=== PATIENT | female | born 1955 | race African-American/Black ===

== ENCOUNTER 2018-03-02 20:48 | Emergency (ER) | payer SELFPAY ==
[~2018-03-02] VITALS: Ht 160 cm; Wt 70.3 kg
[2018-03-03] MEDS ORDERED: IV NORMAL SALINE 1000ML BAG 1,000 ML IV ONE (00:30)
[2018-03-03] MEDS ORDERED: LABETALOL 20 MG/4 ML DISP.SYRIN. IVP ONE (00:30)
[2018-03-03] MEDS ORDERED: DEXAMETHASONE SOD PHOS 20 MG/5 ML VIAL. IV ONE (00:30)
--- NOTE | 2018-03-03 00:34 | PHYS DOC ---
Past Medical History Past Medical History: Diabetes-Type II, High Cholesterol, Hypertension Additional Past Medical Histor: lumbar spine sponylosis Past Surgical History: , Tubal ligation Additional Past Surgical Histo: left wrist ganglion cyst, breast biopsies 3 Smokin Pack Per Day Alcohol Use: None Drug Use: None Adult General Chief Complaint Chief Complaint: DIZZY/LIGHT HEADED HPI HPI Patient is a 62 year old presenting for dizziness. Patient describes her dizziness as room spinning with associated nausea and headache. The patient notes this dizziness has been going on intermittently over the last 10 days and usually lasts about 10 minutes before stopping spontaneously. Patient denies any alleviating or aggravating factors. Patient notes she has not taken any medication for this dizziness. Patient notes she has had nasal congestion and watery discharge from her eyes intermittently for about 8 months. Patient notes these symptoms have an worse recently. Patient denies any tinnitus, hearing loss , vision changes, vomiting, abdominal pain, diarrhea, chest pain, syncope, or recent trauma. The patient also notes that she has had been having trouble controlling her blood pressure recently and notes that she had a systolic reading in the 240s after which she took her clonidine and came to the emergency department. Review of Systems Review of Systems Constitutional: Denies fever or chills [] Eyes: Denies change in visual acuity, redness, or eye pain [] HENT: Notes nasal congestion, denies sore throat [] Respiratory: Denies cough or shortness of breath [] Cardiovascular: Denies chest pain or palpitations[] GI: Denies abdominal pain, nausea, vomiting, bloody stools or diarrhea. Notes constipation[] : Denies dysuria or hematuria [] Musculoskeletal: Denies back pain or joint pain [] Integument: Denies rash or skin lesions [] Neurologic: Notes headache, denies focal weakness or sensory changes [] Complete systems were reviewed and found to be within normal limits, except as documented in this note. Current Medications Current Medications Current Medications Medications (Trade) Dose Ordered Sig/Percy Start Time Stop Time Status Last Admin Dose Admin Dexamethasone Sodium Phosphate (Decadron) 10 mg 1X ONCE 03/03/18 00:30 03/03/18 00:31 DC 03/03/18 01:52 10 MG Insulin Human Regular (HumuLIN R VIAL) 12 unit 1X ONCE 03/03/18 02:45 03/03/18 02:46 DC 03/03/18 03:05 12 UNIT Labetalol HCl (Normodyne Iv Push) 10 mg 1X ONCE 03/03/18 00:30 03/03/18 00:31 DC 03/03/18 01:54 10 MG Neomycin/ Polymyxin/ Bacitracin (Triple Antibiotic Ointment) 1 pkt 1X ONCE 03/03/18 03:15 03/03/18 03:16 DC Sodium Chloride 1,000 ml @ 1,000 mls/hr 1X ONCE 03/03/18 00:30 03/03/18 01:29 DC 03/03/18 01:53 1,000 MLS/HR Allergies Allergies Allergies Coded Allergies Type Severity Reaction Last Updated Verified No Known Drug Allergies 03/03/18 No Physical Exam Physical Exam Constitutional: Well developed, well nourished, no acute distress, non-toxic appearance. [] HENT: Normocephalic, atraumatic, bilateral external ears normal, oropharynx moist, no oral exudates, nose normal. [] Eyes: PERRL, EOMI, conjunctiva normal, no discharge. [] Neck: Normal range of motion, no tenderness, supple, no meningismus. [] Cardiovascular:Heart rate regular rhythm, no murmur [] Lungs & Thorax: Bilateral breath sounds clear to auscultation [] Abdomen: Bowel sounds normal, soft, no tenderness. [] Skin: Warm, dry, no erythema, no rash. [] Back: No tenderness, no CVA tenderness. [] Extremities: No tenderness, no cyanosis, no clubbing, ROM intact, no edema. [] Neurologic: Alert and oriented X 3, normal motor function, normal sensory function, no focal deficits noted. [] Psychologic: Affect normal, judgement normal, mood normal. [] Current Patient Data Vital Signs Vital Signs Date Time Temp Pulse Resp B/P (MAP) Pulse Ox O2 Delivery O2 Flow Rate FiO2 03/03/18 03:06 92 20 97 03/03/18 01:54 212/100 03/03/18 00:46 98.4 Room Air 98.4 Lab Values Laboratory Tests Test 03/03/18 01:40 White Blood Count 6.6 x10^3/uL (4.0-11.0) Red Blood Count 4.92 x10^6/uL (3.50-5.40) Hemoglobin 13.1 g/dL (12.0-15.5) Hematocrit 39.5 % (36.0-47.0) Mean Corpuscular Volume 80 fL (79-100) Mean Corpuscular Hemoglobin 27 pg (25-35) Mean Corpuscular Hemoglobin Concent 33 g/dL (31-37) Red Cell Distribution Width 17.0 % (11.5-14.5) H Platelet Count 290 x10^3/uL (140-400) Neutrophils (%) (Auto) 51 % (31-73) Lymphocytes (%) (Auto) 36 % (24-48) Monocytes (%) (Auto) 10 % (0-9) H Eosinophils (%) (Auto) 2 % (0-3) Basophils (%) (Auto) 1 % (0-3) Neutrophils # (Auto) 3.4 x10^3uL (1.8-7.7) Lymphocytes # (Auto) 2.4 x10^3/uL (1.0-4.8) Monocytes # (Auto) 0.7 x10^3/uL (0.0-1.1) Eosinophils # (Auto) 0.1 x10^3/uL (0.0-0.7) Basophils # (Auto) 0.1 x10^3/uL (0.0-0.2) Urine Collection Type Unknown Urine Color Yellow Urine Clarity Clear Urine pH 8.0 Urine Specific Burnett 1.015 Urine Protein Negative mg/dL (NEG-TRACE) Urine Glucose (UA) >=1000 mg/dL (NEG) Urine Ketones (Stick) Negative mg/dL (NEG) Urine Blood Negative (NEG) Urine Nitrite Negative (NEG) Urine Bilirubin Negative (NEG) Urine Urobilinogen Dipstick 1.0 mg/dL (0.2 mg/dL) Urine Leukocyte Esterase Negative (NEG) Urine RBC Occ /HPF (0-2) Urine WBC Occ /HPF (0-4) Urine Squamous Epithelial Cells Few /LPF Urine Bacteria 0 /HPF (0-FEW) Urine Yeast Present /HPF Sodium Level 136 mmol/L (136-145) Potassium Level 3.9 mmol/L (3.5-5.1) Chloride Level 102 mmol/L (98-107) Carbon Dioxide Level 25 mmol/L (21-32) Anion Gap 9 (6-14) Blood Urea Nitrogen 5 mg/dL (7-20) L Creatinine 0.6 mg/dL (0.6-1.0) Estimated GFR (Cockcroft-Gault) 122.6 BUN/Creatinine Ratio 8 (6-20) Glucose Level 368 mg/dL (70-99) H Calcium Level 8.7 mg/dL (8.5-10.1) Magnesium Level 1.9 mg/dL (1.8-2.4) Total Bilirubin 0.3 mg/dL (0.2-1.0) Aspartate Amino Transferase (AST) 27 U/L (15-37) Alanine Aminotransferase (ALT) 16 U/L (14-59) Alkaline Phosphatase 72 U/L (46-116) Creatine Kinase 53 U/L (26-192) Troponin I Quantitative < 0.017 ng/mL (0.000-0.055) Total Protein 9.0 g/dL (6.4-8.2) H Albumin 3.2 g/dL (3.4-5.0) L Albumin/Globulin Ratio 0.6 (1.0-1.7) L Laboratory Tests 03/03/18 01:40 Laboratory Tests 03/03/18 01:40 EKG EKG @0055 NSR at 94bpm, nonspecific t wave inversion I and aVL, NO ST elevation Radiology/Procedures Radiology/Procedures Examination: CT head and maxillofacial bones without contrast HISTORY: History of dizziness, hypertension, sinus pressure Exposure: One or more of the following individualized dose reduction techniques were utilized for this examination: 1. Automated exposure control 2. Adjustment of the mA and/or kV according to patient size 3. Use of iterative reconstruction technique CT HEAD INDICATION: dizzy, HTN, sinus pressure, no priors COMPARISON: None Available. TECHNIQUE: 5 mm contiguous axial images were obtained from the skull base to the vertex in both bone and soft tissue algorithm. FINDINGS: No abnormal attenuation within the brain parenchyma. No evidence of acute intracranial hemorrhage. No extra-axial fluid collections. No mass effect or midline shift. Ventricular size is appropriate. Basal cisterns are patent. No fractures identified.Martínez-white differentiation is preserved.Globes and orbits are within normal limits. IMPRESSION: No acute intracranial findings. EXAM: CT FACIAL BONES WITHOUT CONTRAST History: dizzy, HTN, sinus pressure, no priors COMPARISON: None TECHNIQUE: Noncontrast images of the facial bones are performed. Coronal and sagittal reformatted images are also presented for interpretation. FINDINGS: No fracture, dislocation or other acute bony abnormality is identified. There is no soft tissue abnormality or radiopaque foreign body. Small mucous retention cyst or polyp identified in the left maxillary sinus. The globes and orbits are intact in CT appearance. There is no retrobulbar hematoma. IMPRESSION: No acute abnormality of the orbits or face Electronically signed by: Francesco Castillo MD (03/03/2018 12:34 AM) [facility] DICTATED and SIGNED BY: FRANCESCO CASTILLO MD DATE: 03/03/18 0031 Course & Med Decision Making Course & Med Decision Making 62-year-old female presenting with 10 days of intermittent room spinning dizziness with associated nausea and headache. Patient denies any aggravating or alleviating factors and says that the dizziness usually last 10 minutes. Patient also has had recent trouble controlling her blood pressure with a systolic in the 240s before coming to the emergency department. The patient took her clonidine before she came in to the ED. CT head and sinus done and do not show any acute findings. Labs drawn and evaluated and only significant for hyperglycemia. Suspect dizziness possibly secondary to hypertension or upper respiratory tract infection. Prescribed prescription for clonidine 0.2 mg. Patient stable for discharge with outpatient follow-up with PCP. Discussed findings and plan with patient and family, who acknowledge understanding and agreement. [] Dragon Disclaimer Dragon Disclaimer This electronic medical record was generated, in whole or in part, using a voice recognition dictation system. Departure Departure Impression: Primary Impression: Hypertension Additional Impressions: Axillary abscess Dizziness Disposition: 01 HOME, SELF-CARE Condition: IMPROVED Referrals: BENNY ALEJANDRE MD (PCP) Patient Instructions: Abscess, Qiei-lg-Erkn, Dizziness, Alpv-ao-Ihhs, Hypertension Scripts Clonidine Hcl (CLONIDINE HCL) 0.2 Mg Tablet 1 TAB PO BID, #20 TAB 0 Refills Prov: CLARICE JUARES DO 03/03/18 Cephalexin (KEFLEX) 500 Mg Capsule 500 MG PO QID for 10 Days, #40 CAP Prov: CLARICE JUARES DO 03/03/18 Problem Qualifiers Primary Impression: Hypertension Hypertension type: essential hypertension Qualified Codes: I10 - Essential ( primary) hypertension CLARICE JUARES DO Mar 03, 2018 00:34
--- NOTE | 2018-03-03 00:38 | RAD ---
Examination: CT head and maxillofacial bones without contrast HISTORY: History of dizziness, hypertension, sinus pressure Exposure: One or more of the following individualized dose reduction techniques were utilized for this examination: 1. Automated exposure control 2. Adjustment of the mA and/or kV according to patient size 3. Use of iterative reconstruction technique CT HEAD INDICATION: dizzy, HTN, sinus pressure, no priors COMPARISON: None Available. TECHNIQUE: 5 mm contiguous axial images were obtained from the skull base to the vertex in both bone and soft tissue algorithm. FINDINGS: No abnormal attenuation within the brain parenchyma. No evidence of acute intracranial hemorrhage. No extra-axial fluid collections. No mass effect or midline shift. Ventricular size is appropriate. Basal cisterns are patent. No fractures identified.Martínez-white differentiation is preserved.Globes and orbits are within normal limits. IMPRESSION: No acute intracranial findings. EXAM: CT FACIAL BONES WITHOUT CONTRAST History: dizzy, HTN, sinus pressure, no priors COMPARISON: None TECHNIQUE: Noncontrast images of the facial bones are performed. Coronal and sagittal reformatted images are also presented for interpretation. FINDINGS: No fracture, dislocation or other acute bony abnormality is identified. There is no soft tissue abnormality or radiopaque foreign body. Small mucous retention cyst or polyp identified in the left maxillary sinus. The globes and orbits are intact in CT appearance. There is no retrobulbar hematoma. IMPRESSION: No acute abnormality of the orbits or face Electronically signed by: Francesco Castillo MD (03/03/2018 12:34 AM) [facility]
[2018-03-03 01:56] LABS: BILIRUBIN,URINE NEGATIVE (NEG); CLARITY,URINE CLEAR; COLOR,URINE YELLOW; NITRITE,URINE NEGATIVE (NEG); PROTEIN,URINE NEGATIVE (NEG-TRACE)
[2018-03-03 01:57] LABS: BASO # 0.1 x10^3/uL (0.0-0.2); BASO % 1 % (0-3); EOS # 0.1 x10^3/uL (0.0-0.7); EOS % 2 % (0-3); HEMATOCRIT 39.5 % (36.0-47.0); HEMOGLOBIN 13.1 g/dL (12.0-15.5); LYMPH # 2.4 x10^3/uL (1.0-4.8); LYMPH % 36 % (24-48); MEAN CORPUSCULAR HEMOGLOBIN 27 pg (25-35); MEAN CORPUSCULAR HGB CONC 33 g/dL (31-37); MEAN CORPUSCULAR VOLUME 80 fL (79-100); MONO # 0.7 x10^3/uL (0.0-1.1); MONO % 10 % (0-9); NEUT # 3.4 x10^3uL (1.8-7.7); NEUT % 51 % (31-73); PLATELET COUNT 290 x10^3/uL (140-400); RED BLOOD COUNT 4.92 x10^6/uL (3.50-5.40); WHITE BLOOD COUNT 6.6 x10^3/uL (4.0-11.0)
[2018-03-03 02:10] LABS: RBC,URINE OCC /HPF (0-2)
[2018-03-03 02:11] LABS: BACTERIA,URINE 0 /HPF (0-FEW); SQUAMOUS EPITHELIAL CELL,UR FEW /LPF; WBC,URINE OCC /HPF (0-4); YEAST,URINE PRESENT /HPF
[2018-03-03 02:14] LABS: CALCIUM 8.7 mg/dL (8.5-10.1); CREATININE 0.6 mg/dL (0.6-1.0); GFR 122.6; POTASSIUM 3.9 mmol/L (3.5-5.1)
[2018-03-03 02:19] LABS: ALBUMIN 3.2 g/dL (3.4-5.0); ALBUMIN/GLOBULIN RATIO 0.6 (1.0-1.7); MAGNESIUM 1.9 mg/dL (1.8-2.4); TOTAL BILIRUBIN 0.3 mg/dL (0.2-1.0)
[2018-03-03] MEDS ORDERED: INSULIN REGULAR 100 UNIT/ML 3ML VIAL. SQ ONE (02:45)
[2018-03-03] MEDS ORDERED: CEPH-264 PO (03:05)
[2018-03-03] MEDS ORDERED: CLON0.2T PO (03:05)
[2018-03-03 03:06] VITALS: BP 221/114
[2018-03-03] MEDS ORDERED: NEOMY/BACITR/POLYMYXIN OINT PACKET. TP ONE (03:15)
--- NOTE | 2018-03-03 04:32 | EKG ---
[facility] [address] [place] [address] Test Date: 2018-03-03 Test Time: 00:55:43 Pat Name: TRISTA CRUMP Department: Room: Gender: F [employer]: : 1955 Requested By: CLARICE JUARES Order Number: [id number] Reading MD: Measurements Intervals [place] Rate: 94 P: 46 [place]: 126 QRS: -28 QRSD: 78 T: 115 QT: 354 QTc: 448 Interpretive Statements SINUS RHYTHM LEFT ATRIAL ABNORMALITY LEFTWARD AXIS CONSIDER LEFT VENTRICULAR HYPERTROPHY T ABNORMALITY IN HIGH LATERAL LEADS ABNORMAL ECG RI6.01 No previous ECG available for comparison
== END 2018-03-03 03:37 | disposition home or self-care (01) ==
LOC: ER 20:48
DX: I10 Essential (primary) hypertension (principal); R42 Dizziness and giddiness; R11.0 Nausea; R09.81 Nasal congestion; L02.419 Cutaneous abscess of limb, unspecified; E11.9 Type 2 diabetes mellitus without complications; E78.00 Pure hypercholesterolemia, unspecified; F17.200 Nicotine dependence, unspecified, uncomplicated; Z98.890 Other specified postprocedural states; Z98.51 Tubal ligation status
CPT/HCPCS: 36415; 70450; 70486; 80053; 81001; 82550; 83735; 84484; 85025; 93005; 96361; 96372; 96374; 96375; 99285; J1100; J1815; J3490; J7030

== ENCOUNTER → 2019-03-30 | Outpatient (CLI) | payer MEDICAID ==
[~2019-03-30] MED LIST: CEPH-264 PO; CLON0.2T PO
--- NOTE | 2019-03-30 15:01 | RAD ---
MR#: [id number] Date of Study: 03/30/2019 Ordering Physician: ISMAEL OH, Referring Physician: ISMAEL OH Tech: Katja Tavares RVT, JOSE APPROVED REPORT Patient Location: OUT-PATIENT Indications Claudication: PAD Risk Factors Hypertension Diabetes Smoking Medications Aspirin VELOCITY AND DOPPLER WAVEFORM ANALYSIS RIGHT cm/secWaveformSeverity LEFT cm/secWaveform Severity pCFA 140.9MonophasicpCFA 148.3Monophasic Prof Fem Art. 268.4MonophasicProf Fem Art. 216.9Monophasic Fem Art Prox. 22.1MonophasicFem Art Prox. 36.6Monophasic Fem Art Mid. 23.5MonophasicFem Art Mid. 52.8Monophasic Fem Art Dist. 21.7MonophasicFem Art Dist. 50.9Monophasic Pop Art(Fossa) 26.9MonophasicPop Art(AK) 41.6Monophasic TURN DOWN WORKER Prox. 21.7MonophasicPTA Prox. 50.0Monophasic TURN DOWN WORKER Dist. 17.9MonophasicPTA Dist. 24.1Monophasic Per Art Dist.17.1MonophasicPer Art Dist.19.0Monophasic L[place] Dist. 24.9MonophasicATA Dist. 22.3Monophasic DPA 19MonophasicDPA 29Monophasic Findings Grayscale images of the bilateral lower extremity arterial vessels revealed diffuse atherosclerotic p laque. On the right side there is likely greater than 50% stenosis involving the bifurcation of the common f emoral artery. Severely diminished velocities are noted in the superficial femoral artery and the bel ow-knee vessels suggestive of more proximal disease at the level of the bifurcation or severe diffuse disease involving the SFA and popliteal segment. There is three-vessel runoff below the knee. Similarly on the left side there is again a greater than 50% stenosis involving the bifurcation of th e common femoral artery. Velocities are moderately diminished in the superficial femoral artery again suggestive of diffuse greater than 50% stenosis versus more proximal disease. There is again three-v essel runoff in the left lower extremity. Critical Notification Critical Value: No <Conclusion> 1. Probable high-grade bilateral common femoral arterial disease at the level of the bifurcation prob ably involving the proximal and mid superficial femoral arteries. Signed by : Nazario Corcoran, Electronically Approved : 03/30/2019 15:00:52
== END | disposition home or self-care (01) ==
LOC: US 13:55
PROVIDERS: ATTEND Internal Medicine Cardiovascular Disease
DX: I70.203 Unspecified atherosclerosis of native arteries of extremities, bilateral legs (principal); I10 Essential (primary) hypertension; E11.9 Type 2 diabetes mellitus without complications; F17.200 Nicotine dependence, unspecified, uncomplicated
CPT/HCPCS: 93925

== ENCOUNTER 2019-04-14 08:32 | Outpatient (CLI) | payer MEDICAID ==
[~2019-04-14] VITALS: Ht 162.6 cm; Wt 72.6 kg
[2019-04-14] VITALS (14 sets, daily range): BP systolic 166–230; BP diastolic 47–100
[~2019-04-14 08:32] MED LIST changes: +IODIXANOL 320 MG/ML 100 ML VIAL. ONE
[2019-04-14] MEDS ORDERED: METO50TA6 PO (08:55)
[2019-04-14] MEDS ORDERED: HYDR12.59 PO (08:55)
[2019-04-14] MEDS ORDERED: METF10007 PO (08:55)
[2019-04-14] MEDS ORDERED: ASPI325T8 PO (08:55)
[2019-04-14] MEDS ORDERED: BENA40TA15 PO (08:55)
[2019-04-14] MEDS ORDERED: CLON0.1T PO (08:55)
[2019-04-14] MEDS ORDERED: ATOR10TA60 PO (08:55)
[2019-04-14] MEDS ORDERED: HYDR100T24 PO (08:55)
[2019-04-14] MEDS ORDERED: FERR325T14 PO (08:55)
[2019-04-14] MEDS ORDERED: GLIM4TAB4 PO (08:55)
[2019-04-14] MEDS ORDERED: OMEP40CA45 PO (08:55)
[2019-04-14] MEDS ORDERED: FURO-69 PO (08:55)
[2019-04-14 09:13] LABS: HEMATOCRIT 29.1 % (36.0-47.0); HEMOGLOBIN 8.7 g/dL (12.0-15.5); RED BLOOD COUNT 4.71 x10^6/uL (3.50-5.40); RED CELL DISTRIBUTION WIDTH 22.6 % (11.5-14.5)
[2019-04-14 09:27] LABS: PROTHROMBIN TIME PATIENT 12.9 SEC (11.7-14.0)
[2019-04-14 09:29] LABS: CALCIUM 9.4 mg/dL (8.5-10.1); CREATININE 0.7 mg/dL (0.6-1.0); GFR 102.3; POTASSIUM 4.2 mmol/L (3.5-5.1)
[2019-04-14] MEDS ORDERED: hydrALAZINE 20 MG/ML VIAL. IVP PRN (09:45)
[2019-04-14] MEDS ORDERED: hydrALAZINE 20 MG/ML VIAL. ONE ×2 (09:49→11:36)
--- NOTE | 2019-04-14 10:40 | PDOC ---
MODERATE SEDATION ASSESSMENT RISKS/ALTERNATIVES Risks/Alternatives Risks and alternatives of this type of sedation and procedure discussed with: RISK/ALTERNATIVES: Patient H & P ON CHART H & P H & P on chart and reviewed for co-morbid conditions and appropriate labs. H&P ON CHART: Yes STATUS PREG STATUS ASSESSED: N/A MEDS/ALLERGIES REVIEWED Meds/Allergies Reviewed Medications and Allergies including time and route of recently administered narcotics and sedatives. MEDS/ALLERGIES REVIEWED: Yes ASA RATING ASA RATING: III AIRWAY ASSESSMENT Airway Assessment Airway patency, oral function limitations, presence of caps, crowns, dentures, partials, and ability to extend neck assessed. AIRWAY ASSESSMENT: Yes MALLAMPATI SCORE MALLAMPATI SCORE: II PRE-SEDATION ASSESSMENT PRE-SEDATION ASSESSMENT: Yes ISMAEL OH MD Apr 14, 2019 10:40
[2019-04-14] MEDS ORDERED: LIDOCAINE 1% Multi-Dose 20 ML VIAL. ONE (10:48)
[2019-04-14] MEDS ORDERED: MIDAZOLAM HCL/PF 2 MG/2 ML VIAL. ONE (10:54)
[2019-04-14] MEDS ORDERED: fentaNYL PF VIAL 100 MCG/2 ML VIAL ONE (10:55)
[2019-04-14] MEDS ORDERED: diphenhydrAMINE 50 MG/ML VIAL ONE (11:26)
[2019-04-14] MEDS ORDERED: MIDAZOLAM HCL/PF 2 MG/2 ML VIAL. IV ONE (12:00)
[2019-04-14] MEDS ORDERED: IODIXANOL 320 MG/ML 100 ML VIAL. IART ONE (12:00)
[2019-04-14] MEDS ORDERED: LIDOCAINE 1% Multi-Dose 20 ML VIAL. INJ ONE (12:00)
[2019-04-14] MEDS ORDERED: hydrALAZINE 20 MG/ML VIAL. IVP ONE (12:00)
[2019-04-14] MEDS ORDERED: fentaNYL PF VIAL 100 MCG/2 ML VIAL IV ONE (12:00)
[2019-04-14] MEDS ORDERED: diphenhydrAMINE 50 MG/ML VIAL IVP ONE (12:00)
[2019-04-14] MEDS ORDERED: IV 1/2 NORMAL SALINE 1,000 ML IV SCH (12:18)
[2019-04-14] MEDS ORDERED: NITROGLYCERIN SUBLINGUAL 0.4 MG BOTTLE OF 25. SL PRN (12:30)
--- NOTE | 2019-04-14 12:59 | CARD ---
MR#: [id number] Date of Study: 04/14/2019 Ordering Physician: ISMAEL SHIN, Referring Physician: Douglas WEIR: Laura Capps APPROVED REPORT Patient StatusOUT-PATIENT Test Engineer Nuclear Equipment: Laura Capps Procedure(s) performed: Aortogram with bilateral lower extremity runoff fl time: 5.2 mins dose: 94.5 gy/cm2 contrast: 135 ml visipaque moderate sedation: 66 minutes INDICATION FOR PROCEDURE The indication(s) include : Peripheral artery disease with claudication. PROCEDURE NARRATIVE After explaining the risks, benefits and alternative options, informed consent was obtained from royce ent. Patient was brought to the cardia Charge Account Authorizer and her right groin was prepped and draped in the usu al fashion. 20 mL of 2% lidocaine was infiltrated into the skin and subcutaneous tissues for local an esthesia. Arterial access was obtained in the right common femoral artery and 5 [place] sheath inserte d. 5 [place] pigtail catheter was used to perform aortogram with bilateral lower extremity runoff. The aortic shira was crossed over using 5 [place] crossover catheter was then exchanged to a 4 [place] an gled glide catheter and with the tip positioned in the left superficial femoral artery, selective lef t lower extremity angiography was performed. Contrast injections were performed through the sheath in the right groin for right lower extremity angiography. Patient tolerated the procedure well. Hemosta sis was achieved using manual compression. There were no immediate complications. The following findi ngs were noted. FINDINGS 1. No significant stenosis involving the distal descending aorta 2. No significant stenosis involving bilateral renal arteries 3. No significant stenosis involving bilateral common iliac arteries 4. The right external iliac artery showed 90% long stenosis with the sheath causing occlusion. The l eft external iliac artery showed 50-60% stenosis in the proximal segment. 5. The right common femoral artery showed a bifurcation lesion involving the distal HAMMER RUNNER, ostial prof unda and SFA reaching 70-80% stenosis severity. The left common femoral artery did not show any signi ficant stenosis. 6. The right superficial femoral artery showed long 100% chronic total occlusion in proximal to mids egment with distal reconstitution from collaterals. The left superficial femoral artery also showed 1 00% chronic total occlusion in proximal to midsegment with distal reconstitution from collaterals. 7. The popliteal arteries did not show any significant stenosis bilaterally. 8. There is three vessel runoff below the knee left lower extremity. The below the knee vessels fill ed faintly with contrast right lower extremity but there appeared to be three-vessel runoff. Conclusion Severe bilateral lower extremity peripheral artery disease including chronic total occlusions involvi ng bilateral superficial femoral arteries and significant stenosis involving the right external iliac and common femoral arteries. Recommendations Vascular surgery consultation for possible surgical revascularization. If patient is deemed a poor ca ndidate, we will consider staged percutaneous revascularization bilateral lower extremities. Vascular risk factor modification including regular exercise regimen. Signed by : Ismael Shin, Electronically Approved : 04/14/2019 12:59:24
[2019-04-14] MEDS ORDERED: LABETALOL HCL 200 MG TABLET PO SCH (13:00)
[2019-04-14] MEDS ORDERED: LABE200T4 PO (14:59)
--- NOTE | 2019-04-14 15:43 | NUR ---
Discharge Note: TRISTA CRUMP Discharge instructions and discharge home medications reviewed with Patient and a copy given. All questions have been answered and understanding verbalized. The following instructions and handouts were given: groin site care and adult moderate sedation Discontinued lines and drains: Peripheral IV intact. Patient discharged to Home or Self Care withSpousevia Wheelchair
== END 2019-04-14 16:04 | disposition home or self-care (01) ==
LOC: CCL 08:32
PROVIDERS: ATTEND Internal Medicine Cardiovascular Disease
DX: I70.92 Chronic total occlusion of artery of the extremities (principal); I77.1 Stricture of artery; R60.0 Localized edema; E78.5 Hyperlipidemia, unspecified; E11.9 Type 2 diabetes mellitus without complications; I10 Essential (primary) hypertension; R06.09 Other forms of dyspnea; Z72.0 Tobacco use
CPT/HCPCS: 36246; 36415; 75625; 75716; 80048; 85027; 85610; 85730; C1769; C1892; J0360; J1200; J1644; J2250; J3010; Q9967; 99152; 99153

== ENCOUNTER → 2019-05-30 | Outpatient (CLI) | payer MEDICAID ==
[2019-04-14 15:24] VITALS: BP 169/74
[~2019-05-30] MED LIST changes: +ASPI325T8 PO; +ATOR10TA60 PO; +BENA40TA15 PO; +CLON0.1T PO; +FERR325T14 PO; +FURO-69 PO; +GLIM4TAB4 PO; +HYDR100T24 PO; +HYDR12.59 PO; -IODIXANOL 320 MG/ML 100 ML VIAL. ONE; +LABE200T4 PO; +METF10007 PO; +METO50TA6 PO; +OMEP40CA45 PO; +REGADENOSON 0.4 MG/5 ML DISP.SYRIN. IV ONE
--- NOTE | 2019-05-30 09:12 | CARD ---
MR#: [id number] Date of Study: 05/30/2019 Ordering Physician: ISMAEL HO, Referring Physician: ISMAEL OH Tech: Deb Edwards RDCS APPROVED REPORT EXAM: Two-dimensional and M-mode echocardiogram with Doppler and color Doppler. Other Information Quality : Good INDICATION Exertional Dyspnea 2D DIMENSIONS RVDd1.9 (2.9-3.5cm)Left Atrium(2D)3.3 (1.6-4.0cm) IVSd1.6 (0.7-1.1cm)Aortic Root(2D)2.7 (2.0-3.7cm) LVDd4.2 (3.9-5.9cm)LVOT Diameter2.0 (1.8-2.4cm) PWd0.9 (0.7-1.1cm)LVDs2.2 (2.5-4.0cm) FS (%) 30.0 %SV61.3 ml LVEF(%)60.0 (>50%) Aortic Valve AoV Peak Benji.163.4cm/sAoV VTI32.6cm AO Peak GR.10.7mmHgLVOT Peak Benji.121.1cm/s AO Mean GR.6mmHgAVA (VMAX)2.36cm2 NATIV[place]AD (VTI)2.70cm2 Mitral Valve MV E Eljoqfev244.9cm/sMV DECEL CDXR994cg MV A Pczfnlzw668.8cm/sE/A Ratio0.8 Tricuspid Valve TR P. Rwyvaide578mv/sRAP GNTEFPTE9riHz TR Peak Gr.84dzXkQTDQ41llEi Pulmonary Vein S1 Emiepfkb35.0cm/sD2 Jezmybmk03.7cm/s LEFT VENTRICLE The left ventricle is normal size. There is moderate hypertrophy. The left ventricular systolic funct ion is normal and the ejection fraction is within normal range.The Ejection Fraction is 55-60%. There is normal LV segmental wall motion. Transmitral Doppler flow pattern is Grade I-abnormal relaxation pattern. RIGHT VENTRICLE The right ventricle is normal size. The right ventricular systolic function is normal. ATRIA The left atrium size is normal. The right atrium size is normal. The interatrial septum is intact wit h no evidence for an atrial septal defect or patent foramen ovale as noted on 2-D or Doppler imaging. AORTIC VALVE The aortic valve is mildly thickened but opens well. Doppler and Color Flow revealed no significant a ortic regurgitation. There is no significant aortic valvular stenosis. MITRAL VALVE The mitral valve is calcified but opens well. Mitral annular calcification is mild. There is no evide nce of mitral valve prolapse. There is no mitral valve stenosis. Doppler and Color Flow revealed no m itral valve regurgitation noted. TRICUSPID VALVE The tricuspid valve is normal in structure and function. Doppler and Color Flow revealed trace tricus pid regurgitation. There is moderate pulmonary hypertension. The PA pressure was estimated at 48 mmHg . There is no tricuspid valve stenosis. PULMONIC VALVE The pulmonary valve is normal in structure and function. Doppler and Color Flow revealed no pulmonic valvular regurgitation. There is no pulmonic valvular stenosis. GREAT VESSELS The aortic root is normal in size. The ascending aorta is normal in size. The IVC is normal in size a nd collapses >50% with inspiration. PERICARDIAL EFFUSION There is no evidence of significant pericardial effusion. Critical Notification Critical Value: No <Conclusion> The left ventricular systolic function is normal and the ejection fraction is within normal range.The Ejection Fraction is 55-60%. There is normal LV segmental wall motion. There is moderate hypertrophy. Doppler and Color Flow revealed trace tricuspid regurgitation. There is moderate pulmonary hypertensi on. The PA pressure was estimated at 48 mmHg. Signed by : Nazario Corcoran, Electronically Approved : 05/30/2019 09:11:30
--- NOTE | 2019-05-30 09:12 | RAD ---
MR#: [id number] Date of Study: 05/30/2019 Ordering Physician: ISMAEL OH, Referring Physician: ISMAEL OH, Tech: Antonino Cui, DEANNA, RDMS, RVT, RDCS, RTR APPROVED REPORT Patient Location : OUT-PATIENT Indications Lower Extremity Edema : Bilateral Findings Grayscale images of the bilateral saphenofemoral junctions do not reveal any obvious evidence of thro mbus. The right great saphenous vein measures 5.3 mm and the left great saphenous vein measures 5.2 m m. Both of these veins do not show any evidence of reflux. The bilateral lesser saphenous veins do no t show reflux. Critical Notification Critical Value: No <Conclusion> No reflux identified in the bilateral greater and lesser saphenous veins Signed by : Nazario Corcoran, Electronically Approved : 05/30/2019 09:12:25
--- NOTE | 2019-05-30 12:53 | RAD ---
MR#: [id number] Date of Study: 05/30/2019 Ordering Physician: ISMAEL OH, Referring Physician: JEROD WEIR Tech: PAVEL Garcia ARRT (R) (N) APPROVED REPORT Test Type: Pharmacological Stress Nurse/Tech: Ann Marie Willingham RN Test Indications: Dyspnea on exertion Cardiac History: Hypertension, Diabetes,smoker,TIA Medications: See Electronic Medical Record Medical History: See Electronic Medical Record Resting ECG: SR with BBB Resting Heart Rate: 86 bpm Resting Blood Pressure: 191/89mmHg Pretest Chest Pain: No chest pain Nurse/Tech Notes S1, S2 and lungs diminished in the bases. Consent: The procedure was explained to the patient in lay terms. Informed consent was witnessed. Jared eout was entered into [employer]. History and Stress Test performed by RT Eveline CarmonaR) (N) Pharm. Details Pharmacologic stress testing was performed using 0.4mg per 5ml of regadenoson given intravenously ove r 7-10 seconds. Stress Symptoms Flushing, 4/10 midsternum chest pain that resolved by end of study POST EXERCISE Reason for Termination: Infusion complete Target HR: No Max HR: 101 bpm Max Blood Pressure: 179/78mmHg Blood Pressure response to exercise: Normal blood pressure response during stress. Heart Rate response to exercise: WNL Chest Pain: Yes. See note above Arrhythmia: No. ST Change: No. INTERPRETATION Stress EKG Conclusion: The resting EKG showed a sinus rhythm and mild nonspecific ST-T wave changes. The stress EKG showed no significant change from baseline. No EKG evidence of stress-induced ischemia. Imaging Protocol IMAGE PROTOCOL: Rest Tc-99m/stress Tc-99m 1 day Rest: Stress: Viability: Radiopharm.Tc99m DwnuyvuftDw11l Sestamibi Dose10.8mCi 33mCi Img Date 05/30/2019 05/30/2019 Inj-Img Oidn45obj. 60min. Rest Admin Site:IV - Right HandAdministrator:PAVEL Garcia ARRT (R)(N) Stress Admin Site: IV - Right HandAdministrator: JEROD GarciaTCBea, ARRT (R)(N) STRESS DATA End Diast. Vol.79.0mlAv. Heart Rate90.0bpm End Syst. Vol.18.0mlCO Index BSA0.0L/min Myocardial Vlsw765.0gEject. Wnpmfxhb00.0% Stress Rates Pk. Fill Rate5.00EDV/secLVtime Pk. Fill 114.64msec Pk. Empty Rate5.06ESV/secLVtime Pk. Rlxsy160.41msec /3 Pk. Fill2.53EDV/sec Stress Scores Regional WT0.00Summed WT3.00 Regional WM0.00Summed WM0.00 LV Perfusion The stress scans showed no significant defects. The rest scans showed no significant defects. Nuclear imaging shows no reversible ischemia or infarct. [place] [employer] Normal left ventricular systolic function with an ejection fraction of greater than 70%. LV Perf. Quant 17 Seg. SSS0.00 17 Seg. SRS0.00 17 Seg. SDS0.00 Stress Defect Extent (% LAD)0.00Rest Defect Extent (% LAD)0.00Rev. Defect Extent (% LAD)0.00 Stress Defect Extent (% LCX) 1.30Rest Defect Extent (% LCX)0.00Rev. Defect Extent (% LCX)1.30 Stress Defect Extent (% RCA)0.00Rest Defect Extent (% RCA)0.00Rev. Defect Extent (% RCA)0.00 Stress Defect Extent (% MONIKA)0.20Rest Defect Extent (% MONIKA)0.00Rev. Defect Extent (% MONIKA)0.20 Conclusion 1. No EKG evidence of stressed induced ischemia. 2. Nuclear imaging shows no reversible ischemia or infarct. 3. Normal left ventricular systolic function with an ejection fraction of greater than 70%. 4. Low risk Lexiscan nuclear stress test. Signed by : Colby Luciano MD Electronically Approved : 05/30/2019 12:53:21
== END | disposition home or self-care (01) ==
LOC: US 07:52
PROVIDERS: ATTEND Internal Medicine Cardiovascular Disease
DX: I34.8 Other nonrheumatic mitral valve disorders (principal); I27.20 Pulmonary hypertension, unspecified; I45.4 Nonspecific intraventricular block; I10 Essential (primary) hypertension; E11.9 Type 2 diabetes mellitus without complications; Z87.891 Personal history of nicotine dependence; Z86.73 Personal history of transient ischemic attack (TIA), and cerebral infarction without residual deficits; R60.0 Localized edema
CPT/HCPCS: 78452; 93017; 93306; 93970; A9500; J2785

== ENCOUNTER → 2019-08-10 | Outpatient (CLI) | payer MEDICAID ==
[2019-04-14 15:24] VITALS: BP 169/74
[~2019-08-10] MED LIST changes: -GLIM4TAB4 PO; +GLIM4TAB8 PO; -REGADENOSON 0.4 MG/5 ML DISP.SYRIN. IV ONE
--- NOTE | 2019-08-10 09:27 | RAD ---
MR#: [id number] Date of Study: 08/10/2019 Ordering Physician: ISMAEL OH, Referring Physician: ISMAEL OH, Tech: Katja Farmer RVT,[facility] APPROVED REPORT Patient Location: OUT-PATIENT Indications Uncontrolled HTN Grayscale images of the abdominal aorta demonstrate mild intimal hyperplasia but no focal plaque. Benji ocities and wave forms are within normal limits. Grayscale images of the kidneys are grossly unremarkable. Spectral waveforms of the proximal, mid and distal renal artery are suggestive of moderate stenosis w ith a peak systolic velocity on the right side of 237 in the distal segment of the renal artery. On t he left side peak systolic velocity of 278 cm/s suggestive of at least 50-60% stenosis. Resistive ind ices are within normal limits. Renal to aortic ratios are mildly elevated. Risk Factors Hypertension Diabetes Smoking Renal Artery Doppler Right Renal Artery Left Renal Arter y Proximal 140.0/33.4 cm/secProximal 278.1/14.5 cm/sec Mid 205.2/46.1 cm/secMid 114.5/24.2 cm/sec Distal 237.0/38.2 cm/secDistal 189.3/36.6 cm/sec Renal/Aorta Ratio 2.00Renal/Aorta Ratio 2.40 Prox. Resistive Index 0.76Prox. Resistive Index 0.95 Mid Resistive Index 0.78Mid Resistive Index 0.79 Distal Resistive Index 0.84Distal Resistive Index 0.81 Renal Measurements RightLeft Kidney Eayrzm97.9 cm cmKidney Omfubs49.1 cm cm Right Additional FindingsLeft Additional Findings Aortic Duplex A/PTransverseLongitudinal Proximal Aorta 1.9cm Mid Aorta 1.8cm Aortic Doppler VelocityWaveform Proximal Aorta 117.4 cm/sec Mid. Aorta 65.2 cm/sec Critical Notification Critical Value: No <Conclusion> 1. Probable moderate disease involving the right distal renal artery, probable moderate to severe dis ease involving the left renal artery proximal segment. Signed by : Nazario Corcoran, Electronically Approved : 08/10/2019 09:27:33
== END | disposition home or self-care (01) ==
LOC: US 08:59
PROVIDERS: ATTEND Internal Medicine Cardiovascular Disease
DX: I10 Essential (primary) hypertension (principal); E11.9 Type 2 diabetes mellitus without complications; F17.200 Nicotine dependence, unspecified, uncomplicated
CPT/HCPCS: 93975

== ENCOUNTER → 2020-01-22 | Outpatient (CLI) | payer MEDICAID, MEDICARE ==
[2019-09-05 14:43] VITALS: BP 152/62
[~2020-01-22] MED LIST changes: +AMLO10TA8 PO; +ATOR40TA59 PO; +CLOP75TA PO; +SPIR50TA4 PO
--- NOTE | 2020-01-22 11:47 | KCIC ---
MRI Cervical Spine Without Contrast History:Chronic neck pain, hyperreflexia of lower extremities, unsteady gait Technique: Multiplanar, multi sequential noncontrast MR imaging was performed of the cervical spine. Comparison: None Findings: There is degree of diffuse cervical spinal stenosis on a developmental basis There is abnormal T2 and STIR hyperintense signal of the cord at C5-6 more eccentric to the left. There is significant spinal stenosis at this level. Cervical vertebral body stature and AP alignment are maintained. There is mild degenerative disc disease C5-6, mild disc desiccation at other levels. There are some foci of abnormal signal of the visualized naveen, likely sequela of old lacunar infarcts as there is volume loss. No significant focal marrow edema is identified. There is posterior annular tear C4-5. C2-C3: Neural foramina and spinal canal are adequate. C3-C4: There is shallow posterior protrusion about 2 mm AP. There is mild buckling of the ligamentum flavum. Central canal is narrowed to about 7 mm. Neural foramina are overall adequate. C4-C5: There is minimal disc osteophyte complex and superimposed bulge/broad protrusion about 2 to 3 mm AP. There is indentation upon the ventral thecal sac. There is effacement of ventral subarachnoid space with contact of the ventral cord. Central canal is narrowed to about 5 to 6 mm. There is mild facet degenerative change, also likely minimal uncovertebral degenerative change. There is likely mild left and opif-je-smjkhtnh right neural foramina compromise. C5-C6: There is bulge/broad protrusion up to about 3 mm AP with indentation upon the ventral thecal sac and cord. There is also buckling of the ligamentum flavum. There is effacement of ventral and dorsal subarachnoid space. There is severe spinal stenosis, residual AP central canal about 3 to 4 mm AP. There is facet degenerative change greater on the left. There is uncovertebral degenerative change greater on the left. There is severe left and moderate to severe right neural foramina compromise. C6-C7: There is mild buckling of the ligamentum flavum. Central canal is minimally narrowed about 9 to 10 mm on developmental basis. Right neural foramen is adequate. There is left uncovertebral and facet degenerative change resulting in ktpu-gy-hbykskzo narrowing of the left neural foramen. C7-T1: Spinal canal and neural foramina are adequate. Impression: 1. There is severe spinal stenosis with residual central canal about 3 to 4 mm at C5-6, abnormal cord signal at this level which may be due to edema and/or myelomalacia. There is a lesser degree of spinal stenosis on the order of 5 to 6 mm at C4-5 and to lesser degree at C3-4 and C6-7 as stated. 2. Facet and uncovertebral degenerative change contributes to neural foramina compromise, more significant narrowing bilaterally at C5-6, lesser degree of narrowing on the left at C6-7 and on the right at C4-5. 3. 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 Critical results were discussed with WAYNE RAMIREZ at 01/22/2020 11:43 AM. Electronically signed by: Kip George MD (01/22/2020 11:44 AM) [id number]
== END | disposition home or self-care (01) ==
LOC: KCIC MRI 10:05
PROVIDERS: ATTEND Physical Medicine & Rehabilitation
DX: M50.122 Cervical disc disorder at C5-C6 level with radiculopathy (principal); M47.22 Other spondylosis with radiculopathy, cervical region; M48.02 Spinal stenosis, cervical region; M25.78 Osteophyte, vertebrae
CPT/HCPCS: 72141

== ENCOUNTER → 2021-03-06 | Outpatient (CLI) | payer MEDICARE, MEDICAID ==
[2019-09-05 14:43] VITALS: BP 152/62
[~2021-03-06] MED LIST changes: +AMLO-187 PO; -AMLO10TA8 PO; -OMEP40CA45 PO; +OMEP40CA7 PO
[2021-03-06] MEDS: REGADENOSON 0.4 MG/5 ML DISP.SYRIN. IV ONE (11:09)
--- NOTE | 2021-03-06 16:42 | RAD ---
MR#: [id number] Date of Study: 03/06/2021 Ordering Physician: ISMAEL OH, Referring Physician: JEROD WEIR Tech: RT Kristine (R) (N) APPROVED REPORT Test Type: Pharmacological Stress Nurse/Tech: MARY GRACE SYLVESTER Test Indications: CHF Cardiac History: CHF- SEE EMR Medications: SEE EMR Medical History: SEE EMR Resting ECG: SR Resting Heart Rate: 89 bpm Resting Blood Pressure: 144/75mmHg Pretest Chest Pain: No chest pain Nurse/Tech Notes S1,S2, LUNGS CTA, DENIED CHEST PAIN OR SOA. VSS. Consent: The procedure was explained to the patient in lay terms. Informed consent was witnessed. Jared eout was entered into [employer]. History and Stress Test performed by PAVEL Garcia, JOSE ALBERTO (R) (N) Pharm. Details Pharmacologic stress testing was performed using 0.4mg per 5ml of regadenoson given intravenously ove r 7-10 seconds. Stress Symptoms PT C/O ABDOMINAL PAIN DURING INITAL TESTING, SYMPTOMS RESOLVED WITHIN A COUPLE OF MINUTES. VSS. DENIE D CHEST PAIN. POST EXERCISE Reason for Termination: Infusion complete Max HR: 105 bpm Max Blood Pressure: 153/64mmHg Blood Pressure response to exercise: Normal blood pressure response during stress. Heart Rate response to exercise: WNL Chest Pain: No. Arrhythmia: No. NO SIGNIFICANT CHANGES FROM BASELINE EKG NOTED. ST Change: No. INTERPRETATION Stress EKG Conclusion: Baseline EKG showed sinus rhythm. No ischemic changes at peak stress. No arr hythmias. Imaging Protocol IMAGE PROTOCOL: Rest Tc-99m/stress Tc-99m 1 day Rest: Stress: Viability: Radiopharm.Tc99m CrepjlrvbEq55j Sestamibi Dose10.1mCi 31mCi Duration 15min. 10min. Img Date 03/06/2021 03/06/2021 Inj-Img Izcs71cfi. 60min. Rest Admin Site:IV - Right HandAdministrator:PAVEL Garcia ARRT (R)(N) Stress Admin Site: Desktop Operator: PAVEL Garcia, ARRT (R)(N) STRESS DATA End Diast. Vol.54.0mlAv. Heart Rate95.0bpm End Syst. Vol.4.0mlCO Index BSA0.0L/min Myocardial Pynv970.0gEject. Otuyrbfk56.0% Stress Rates Pk. Fill Rate1.31EDV/secLVtime Pk. Fill 124.97msec Pk. Empty Rate4.72ESV/secLVtime Pk. Xbmqz301.74msec /3 Pk. Fill1.27EDV/sec Stress Scores Regional WT1.00Summed WT3.00 Regional WM0.00Summed WM0.00 Study quality was good. Left Ventricular size was Normal at Rest and Stress. Lung uptake was . Left Ventricular ejection fraction is 84%. The rest and stress images show normal perfusion, normal contraction and thickening. LV Perf. Quant 17 Seg. SSS0.00 17 Seg. SRS0.00 17 Seg. SDS0.00 Stress Defect Extent (% LAD)0.00Rest Defect Extent (% LAD)0.00Rev. Defect Extent (% LAD)0.00 Stress Defect Extent (% LCX) 0.00Rest Defect Extent (% LCX)0.00Rev. Defect Extent (% LCX)0.00 Stress Defect Extent (% RCA)0.00Rest Defect Extent (% RCA)0.00Rev. Defect Extent (% RCA)0.00 Stress Defect Extent (% MONIKA)0.00Rest Defect Extent (% MONIKA)0.00Rev. Defect Extent (% MONIKA)0.00 Conclusion 1. Regadenoson cardioisotope stress test did not show any evidence of ischemia or infarct. 2. Normal left ventricular systolic function with ejection fraction calculated at 84%. 3. Low risk for cardiac events. Signed by : Ismael Oh, Electronically Approved : 03/06/2021 16:42:36
== END ==
LOC: NM 08:51
PROVIDERS: ATTEND Internal Medicine Cardiovascular Disease
DX: I50.32 Chronic diastolic (congestive) heart failure (principal)
CPT/HCPCS: 78452; 93017; A9500; J2785

== ENCOUNTER → 2021-09-18 | Outpatient (CLI) | payer MEDICARE, MEDICAID ==
[2019-09-05 14:43] VITALS: BP 152/62
--- NOTE | 2021-09-19 09:17 | CARD ---
MR#: [id number] Date of Study: 09/18/2021 Ordering Physician: ISMAEL SHIN, Referring Physician: Douglas WEIR: Jaquan Berry [facility] APPROVED REPORT EXAM: Two-dimensional and M-mode echocardiogram with Doppler and color Doppler. Other Information Quality : AverageHR: 83bpm Rhythm : NSR INDICATION Congestive Heart Failure RISK FACTORS Hypertension 2D DIMENSIONS Left Atrium(2D)3.3 (1.6-4.0cm)IVSd1.2 (0.7-1.1cm) Aortic Root(2D)3.0 (2.0-3.7cm)LVDd4.4 (3.9-5.9cm) LVOT Diameter1.9 (1.8-2.4cm)PWd1.2 (0.7-1.1cm) LA Dssybf98 (18-58mL)LVDs2.3 (2.5-4.0cm) FS (%) 49.2 %SV72.1 ml LVEF(%)80.8 (>50%) Aortic Valve AoV Peak Benji.181.9cm/sAoV VTI33.5cm AO Peak GR.13.2mmHgLVOT Peak Benji.123.9cm/s AO Mean GR.6mmHgAVA (VMAX)1.95cm2 Mitral Valve MV E Sgtbdqne633.9cm/sMV E Peak Gr.10mmHg MV DECEL VROA346xnFK A Nqfpxkjy534.9cm/s MV E Mean Gr.4mmHgE/A Ratio0.8 Pulmonary Valve PV Peak Nctsggmn749.6cm/s Tricuspid Valve TR P. Nitxnqjk421dn/sTR Peak Gr.31mmHg Pulmonary Vein S1 Edolidco16.2cm/sD2 Rdknyyvb36.2cm/s LEFT VENTRICLE The left ventricle is normal size. There is mild concentric left ventricular hypertrophy. The left ve ntricular systolic function is normal. The ejection fraction is 60-65%. There is normal LV segmental wall motion. Tissue Doppler imaging reveals moderate left ventricular diastolic dysfunction. No left ventricle thrombus noted on this study. There is no ventricular septal defect visualized. There is no left ventricular aneurysm. There is no mass noted in the left ventricle. RIGHT VENTRICLE The right ventricle is normal size. There is normal right ventricular wall thickness. The right ventr icular systolic function is normal. ATRIA The left atrium is borderline dilated. The right atrium size is normal. The interatrial septum is int act with no evidence for an atrial septal defect or patent foramen ovale as noted on 2-D or Doppler i maging. AORTIC VALVE The aortic valve is calcified but opens well. Doppler and Color Flow revealed no significant aortic r egurgitation. There is no significant aortic valvular stenosis. There is no aortic valvular vegetatio n. MITRAL VALVE The mitral valve is normal in structure and function. There is no evidence of mitral valve prolapse. There is no mitral valve stenosis. Doppler and Color-flow revealed trace mitral regurgitation. TRICUSPID VALVE The tricuspid valve is normal in structure and function. Doppler and Color Flow revealed trace tricus pid regurgitation. The PA pressure was estimated at 36 mmHg. There is no tricuspid valve prolapse or vegetation. There is no tricuspid valve stenosis. PULMONIC VALVE The pulmonary valve is normal in structure and function. Doppler and Color Flow revealed no pulmonic valvular regurgitation. There is no pulmonic valvular stenosis. GREAT VESSELS The aortic root is normal in size. The ascending aorta is normal in size. The pulmonary artery is nor mal. The IVC is normal in size and collapses >50% with inspiration. PERICARDIAL EFFUSION There is no pleural effusion. There is no evidence of significant pericardial effusion. Critical Notification Critical Value: No <Conclusion> The left ventricular systolic function is normal. The ejection fraction is 60-65%. There is normal LV segmental wall motion. Tissue Doppler imaging reveals moderate left ventricular diastolic dysfunction. Trace mitral regurgitation. Trace tricuspid regurgitation. The PA pressure was estimated at 36 mmHg. There is no evidence of significant pericardial effusion. Signed by : Ismael Shin, Electronically Approved : 09/19/2021 09:17:03
== END ==
LOC: ECHO 13:56
PROVIDERS: ATTEND Internal Medicine Cardiovascular Disease
DX: I51.7 Cardiomegaly (principal); I35.1 Nonrheumatic aortic (valve) insufficiency; I50.32 Chronic diastolic (congestive) heart failure
CPT/HCPCS: 93306; C8929